=== PATIENT | male | born 1930 | race Caucasian/White ===

== ENCOUNTER 2020-03-03 03:02 | Inpatient (IN) ==
[2020-03-03] MEDS ORDERED: DEXAMETHASONE SODIUM PHOSP/PF 10 MG/ML VIAL IV ONE (03:15)
--- NOTE | 2020-03-03 03:18 | ERNOTE ---
Dyspnea - General Presenting Symptoms: shortness of breath Time Seen by Provider: 03/03/20 03:12 Source: patient, RN notes reviewed Exam Limitations: clinical condition - Immun/Allergies/Home Medications Allergies/Adverse Reactions: Allergies No Known Allergies Allergy (Verified 05/12/19 16:46) FROM AMB SHEET Home Medications: HOME MEDICATIONS Atorvastatin Calcium [Lipitor] 80 mg PO HS 11/19/12 [Last Taken Unknown] Isosorbide Mononitrate [Imdur] 60 mg PO DAILY 11/19/12 [Last Taken Unknown] Metoprolol Tartrate [Lopressor] 50 mg PO BID 11/19/12 [Last Taken Unknown] Paroxetine HCl [Paxil] 60 mg PO DAILY 11/19/12 [Last Taken Unknown] Doxazosin Mesylate [Cardura] 1 mg PO DAILY 01/25/14 [Last Taken Unknown] Furosemide [Lasix] 40 mg PO QAM 01/25/14 [Last Taken Unknown] Omeprazole [Prilosec] 20 mg PO BID 01/25/14 [Last Taken Unknown] ALPRAZolam [Xanax] 0.5 mg PO PRN 03/03/20 [Last Taken Unknown] ALPRAZolam [Xanax] 0.5 mg PO QPM 03/03/20 [Last Taken Unknown] Albuterol Sulfate [Ventolin HFA] 1 puff INHALATION PRN 03/03/20 [Last Taken Unknown] Aspirin [Aspirin Chewable] 81 mg PO DAILY 03/03/20 [Last Taken Unknown] FLUoxetine HCL [Fluoxetine HCl] 20 mg PO QAM 03/03/20 [Last Taken Unknown] Fluticasone Propion/Salmeterol [Fluticasone-Salmeterol 500-50] 1 puff INH BID 03/03/20 [Last Taken Unknown] Mirtazapine 15 mg PO QPM 03/03/20 [Last Taken Unknown] Nitroglycerin [Nitrostat] 0.4 mg SUBLINGUAL Q5MIN PRN 03/03/20 [Last Taken Unknown] Phenytoin Sodium Extended [Dilantin] 30 mg PO QPM 03/03/20 [Last Taken Unknown] Phenytoin [Dilantin Chewable Tablet] 100 mg PO QPM 03/03/20 [Last Taken Unknown] Potassium Chloride 10 meq PO DAILY 03/03/20 [Last Taken Unknown] - History of Present Illness Narrative: Patient is an 89-year-old white male with past medical history significant for COPD was in his usual state of health when he went to bed last night when he awoke early this morning with nausea and vomiting. He denies any chest discomfort other than it is difficult to breathe and states his breathing is definitely much worse than typical. He does not wear oxygen at home. Here in the ER he was noted to be 86% on room air with a respiratory rate in the 40s. He still complains of nausea but no vomiting while here. He denies any urinary symptoms, fevers or chills or ill contacts. Is brought to the ER via POV. He did try breathing treatment at home which he states had minimal benefit. Severity: moderate Treatment FIELD REVIEWER: albuterol Initiating event: Reports: unknown Frequency of episodes: Reports: occassional episodes Modifying Factors - (Improves): Reports: rest Modifying Factors (Worsens): Reports: activity, coughing, lying down Associated Symptoms-Dyspnea: Reports: cough, weakness. Denies: fever/chills, sweating, chest pain/discomfort, palpitations, wheezing, leg/calf pain, ankle/leg swelling, dizziness, lightheadedness, anxiety, tingling of hands/face, muscle spasms, loss of appetite Review of Systems - Review of Systems Constitutional: Absent: fever, chills EYE: Present: no symptoms reported ENT: Present: no symptoms reported Respiratory: Present: shortness of breath. Absent: cough, orthopnea, wheezing, stridor Cardiology: Absent: chest pain, palpitations, syncope, edema, claudication Gastrointestinal/Abdominal: Present: nausea, vomiting. Absent: diarrhea, constipation, abdominal pain Genitourinary: Present: no symptoms reported Musculoskeletal: Present: no symptoms reported Skin: Present: no symptoms reported Neurological: Present: dizziness/light-headedness, weakness Endocrine: Absent: excessive sweating, flushing, intolerance to heat, intolerance to cold Hematologic/Lymphatic: Absent: easy bruising, easy bleeding Psych: Absent: anxiety, depressed Medical History (Last Reviewed 03/03/20 @ 03:27 by Shalom Piedra MD) COPD (chronic obstructive pulmonary disease) History of angina History of hyperlipidemia Hypertension Skin cancer of face Surgical History: Surgical History (Last Reviewed 03/03/20 @ 03:27 by Shalom Piedra MD) H/O prostatectomy Onset Date: ~02/2019 Partial removal of prostate History of hernia surgery History of tonsillectomy and adenoidectomy Status post surgical removal of malignant neoplasm of skin Family History: Family History (Last Reviewed 03/03/20 @ 03:27 by Shalom Piedra MD) Father Cancer Mother Tuberculosis Brother No problems noted. Social History: (Last Reviewed 03/03/20 @ 03:27 by Shalom Piedra MD) Tobacco: Smoking Status: Former smoker Alcohol: alcohol intake: never Substance Use: substance use type: does not use Dietary Habits: caffeine: Yes Physical Exam - Physical Exam General Appearance: Present: wd/wn, alert, severe distress, anxious, thin Head Exam: Present: normal inspection, no evidence of injury Eye Exam: Normal inspection: bilateral, PERRL: bilateral, EOMI: bilateral Neck: Present: normal inspection, supple Respiratory: Present: respiratory distress, accessory muscle use - Poor air exchange bilaterally, expiration (prolonged), rales - Right base, other Cardiovascular/Chest: Present: regular rate, rhythm, no murmur, normal peripheral pulses Gastrointestinal/Abdominal: Present: normal bowel sounds, nontender, nondistended Extremity Exam: Present: normal inspection, non-tender, normal range of motion, no edema Neurological Exam: Present: alert, oriented, no motor/sensory deficits, other - Anxious Skin Exam: Present: normal color, warm/dry Progress - Results and Orders Patient's Lab Results:: I have reviewed the patient's lab results. Results and Orders: Laboratory Tests 03/03/20 03:20 WBC 12.2 H RBC 5.01 Hgb 14.4 Hct 44.8 MCV 89.4 MCH 28.7 MCHC 32.1 RDW 14.0 Plt Count 317 MPV 9.4 Immature Gran % (Auto) 0.30 Immature Gran # (Auto) 0.04 H Neutrophils % 90.3 H Lymphocytes % 6.9 L Monocytes % 1.3 Eosinophils % 0.9 Basophils % 0.3 Nucleated RBC % 0.0 Neutrophils # 11.0 H Lymphocytes # 0.84 L Monocytes # 0.2 Eosinophils # 0.1 Absolute Basophils 0.0 Laboratory Tests 03/03/20 03:26 pCO2 38.2 pO2 48.1 L HCO3 22.1 Total CO2 23.3 Base Excess -2.5 L ABG pH 7.38 ABG O2 Sat (Measured) 83.4 L Laboratory Tests 03/03/20 03/03/20 03/03/20 03:20 03:20 03:25 Sodium 138 Plasma Sodium 139 Potassium 4.2 Chloride 104 Carbon Dioxide 31.0 Anion Gap 7.2 BUN 14 Creatinine 1.09 Est GFR (Non-Af Amer) 68 BUN/Creatinine Ratio 12.8 Random Glucose 160 H Lactic Acid, Venous 2.9 H* Calcium 9.3 Calcium Adj for Albumin 9.6 Total Bilirubin 0.3 AST 41 ALT 35 Alkaline Phosphatase 148 Troponin I Less than 0.017 B-Natriuretic Peptide 370 Total Protein 7.8 Albumin 3.2 L Laboratory Tests 03/03/20 03:30 SARS-CoV-2 (PCR) Not detected - Vital Signs Patient's Vital Signs:: I have reviewed the patient's vital signs. - EKG EKG #1 EKG: NSR, nonspecific ST T wave changes EKG read: Interp. by me EKG Comments: Artifact due to patient movement secondary to respiratory distress, but no acute ST depressions or elevations that are concerning for a STEMI or non-STEMI. - X-Ray X-Ray #1 X-Ray: chest Interpretation: Interp. by me X-ray Comments: Patient with notable right middle lobe and right lower lobe infiltrate. - Progress/Reassessment Chief Complaint: Dyspnea Progress:: Improved Progress Note-Subjective: 03/03/20 05:21 Patient has improved since his arrival. He is now been weaned off his O2 but still gets extremely dyspneic with any activity, with respiratory rate going up into the 30s with even the slightest activity. Blood pressures are now trending down into the 90s so we will give him a bolus of LR, 500 mL's. This is most likely attributed to the additional metoprolol that he received prior to coming to the ER. Patient does voice feeling much better and he does have improved air exchange from when he first arrived. Still given his right lower lobe pneumonia, continued dyspnea on exertion and COPD exacerbation concerns will admit for IV antibiotics, IV steroids, scheduled DuoNeb and work on pulmonary toilet in order to get back home as soon as possible. I do anticipate he will be here for minimum of 2 midnights though. Patient discussed with Dr. Campos who is agreeable to admit patient for [facility]. Appreciate his help. - Transfer of Care Expected Disposition: Admit Plan - Plan Plan: Chest x-ray, physical exam and elevated white count all concerning for right- sided pneumonia. COVID still pending at this time. We will do blood cultures start him on IV Rocephin, a dose of p.o. azithromycin and dexamethasone. Patient does have a lactic acidosis this is more from his hypoxemia not necessarily because he is septic, given his normal pressures and heart rate. We will not do IV fluids at this time but will repeat a lactic acid to verify improvement. Given drop in his blood pressures will now do LR bolus. Believe his drop in blood pressure is more due to the extra dose of metoprolol he got prior to ER arrival and not due to a septic state. Patient is COVID was negative. Departure Clinical Impression: COPD with exacerbation, Acute respiratory failure with hypoxia RLL pneumonia Qualifiers: Pneumonia type: due to unspecified organism Qualified Code(s): J18.9 - Pneumonia, unspecified organism - Departure Disposition: Still a patient Condition: Fair Referrals: Shalom Rice MD [Primary Care Provider] -
[2020-03-03] MEDS ORDERED: ONDANSETRON HCL/PF 2 MG/ML VIAL IV ONE (03:23)
[2020-03-03 03:26] LABS: Hematocrit 44.8 % (42.0-52.0); Hemoglobin 14.4 gm/dL (13.5-18.0); Mean Cell Volume 89.4 fl (78-100); Mean Corpuscular Hemoglobin 28.7 pg (27-31); Mean Corpuscular Hgb Conc 32.1 g/dl (32-36); Mean Platelet Volume 9.4 fl (8-11.3); Neutrophil % 90.3 % (42-75.0); Platelet Count 317 K/mm3 (150-450); Red Blood Count 5.01 M/mm3 (4.7-6.0); White Blood Count 12.2 K/mm3 (4.0-10.5)
[2020-03-03] MEDS ORDERED: AZITHROMYCIN 250 MG TABLET PO STA (03:27)
[2020-03-03] MEDS ORDERED: cefTRIAXone SODIUM 1,000 MG/100 ML BAG IV ONE (03:30)
[2020-03-03 03:49] LABS: Troponin I Less than 0.017 ng/mL (0.00-0.10)
[2020-03-03 03:52] LABS: ALT 35 U/L (19-67); AST 41 U/L (0-48); Albumin * 3.2 gm/dl (3.4-5.0); Alkaline Phosphatase * 148 U/L (50-170); Anion Gap 7.2 mmol/L (6.8-13.8); BUN/Creatinine Ratio 12.8 (9.0-21.6); Bilirubin, Total 0.3 mg/dL (0.0-1.1); Blood Urea Nitrogen 14 mg/dL (6-23); Ca. Corrected For Albumin 9.6 mg/dL (8.4-10.2); Calcium * 9.3 mg/dL (7.9-10.9); Chloride 104 mmol/L (97-106); Glucose * 160 mg/dL (70-110); Potassium 4.2 mmol/L (3.4-4.6); Sodium 138 mmol/L (132-142); Total Protein 7.8 gm/dL (6.2-8.2)
[2020-03-03 04:30] LABS: Urine Bilirubin Negative (NEGATIVE); Urine Blood Negative /ul (NEGATIVE); Urine Ketone Negative (NEGATIVE); Urine Nitrite Negative (NEGATIVE); Urine Protein Negative (NEGATIVE); Urine Specific Gravity 1.015 SP.GR. (1.005-1.030); Urine Urobilinogen Normal (NORMAL)
[2020-03-03] MEDS ORDERED: ALBUTEROL SULFATE/IPRATROPIUM 3 ML NEBU IH ONE (04:31)
[2020-03-03 04:46] LABS: Urine Appearance Clear (CLEAR); Urine Bacteria None Seen; Urine Color Yellow; Urine RBC None Seen /hpf (0-5); Urine WBC None Seen /hpf (0-5)
[2020-03-03] MEDS ORDERED: RINGER'S SOLUTION,LACTATED 500 ML IV ONE (05:19)
[2020-03-03] MEDS ORDERED: ACETAMINOPHEN 325 MG TABLET PO PRN (05:26)
[2020-03-03] MEDS ORDERED: ALBUTEROL SULFATE/IPRATROPIUM 3 ML NEBU IH SCH (05:30)
[2020-03-03] MEDS: HEPARIN SODIUM,PORCINE 5,000 UNITS/ML VIAL SC SCH ×2 (06:14→16:42)
--- NOTE | 2020-03-03 07:59 | HP ---
Chief Complaint - Chief Complaint Date of Service: 03/03/20 Time of Service: 07:57 History of Present Illness: Matthias Hall is an 89-year-old white male patient of Dr. Rice with past medical history of COPD, hypertension, seizure disorder, hyperlipidemia, history of angina, who was admitted on 03/03/2024 because of shortness of breath associated with nausea. The patient says that when he woke-up this morning he was starting to have some shortness of breath associated with wheezing. He used his inhalers and nebulizers 3 times with no success and so he went to the emergency room. He denied any chest pain, fever or chills, coughing with productive phlegm but admits to orthopnea. He does not wear oxygen at home. When he got to the emergency room he was saturating around 86% on room air and tachypneic with respiratory rate in the 40s. His EKG showed normal sinus rhythm with nonspecific ST-T wave changes. His white blood cell count was elevated and his chest x-ray showed right middle and lower lobe consolidation. His ABG showed 7.38/38.2/48.1/22/83.4 %. He was then admitted for pneumonia with acute COPD exacerbation leading to acute hypoxemic respiratory failure. His oxygen saturation improved to the upper 90s with 2 L of nasal cannula. Medical History (Last Reviewed 03/03/20 @ 06:22 by Desean Jeffers RN) COPD (chronic obstructive pulmonary disease) History of angina History of hyperlipidemia Hypertension Skin cancer of face Surgical History: Surgical History (Last Reviewed 03/03/20 @ 06:22 by Desean Jeffers RN) H/O prostatectomy Onset Date: ~02/2019 Partial removal of prostate History of hernia surgery History of tonsillectomy and adenoidectomy Status post surgical removal of malignant neoplasm of skin Family History: Family History (Last Reviewed 03/03/20 @ 06:22 by Desean Jeffers RN) Father Cancer Mother Tuberculosis Brother No problems noted. Social History: (Last Reviewed 03/03/20 @ 06:22 by Desean Jeffers RN) Tobacco: Smoking Status: Former smoker Alcohol: alcohol intake: never Substance Use: substance use type: does not use Dietary Habits: caffeine: Yes Review Of Systems (GEN) - Review of Systems Generalized/Overall Review: Absent: Weakness, Chills, Fever EENTM: Absent: Blurred Vision, Other - Denies sore throat Respiratory: Present: Shortness of Breath, Wheezing. Absent: Cough, Orthopnea, Stridor Cardiac: Absent: Chest Pain, Edema, Palpitations Abdominal: Present: Nausea. Absent: Vomiting, Abdominal Pain Genitourinary: Absent: Urgency, Frequency Musculoskeletal: Absent: Joint Pain, Back Pain Neurological: Absent: Headache Skin: Absent: Lesions, Rash Endocrine: Absent: Intolerance to Cold, Intolerance to Heat Misc: All systems neg except as marked Immunizations: IMMUNIZATION HX Immunizations Up to Date Yes History of Influenza Vaccine Yes Hx Pneumococcal Vaccination Yes Allergies/Adverse Reactions: Allergies Allergy/AdvReac Type Severity Reaction Status Date / Time No Known Allergies Allergy Verified 03/03/20 06:22 Home Medications: HOME MEDICATIONS Atorvastatin Calcium [Lipitor] 80 mg PO HS 11/19/12 [Last Taken Unknown] Isosorbide Mononitrate [Imdur] 90 mg PO DAILY 11/19/12 [Last Taken Unknown] Metoprolol Tartrate [Lopressor] 50 mg PO BID 11/19/12 [Last Taken Unknown] Paroxetine HCl [Paxil] 30 mg PO DAILY 11/19/12 [Last Taken Unknown] Doxazosin Mesylate [Cardura] 1 mg PO DAILY 01/25/14 [Last Taken Unknown] Furosemide [Lasix] 40 mg PO QAM 01/25/14 [Last Taken Unknown] Omeprazole [Prilosec] 40 mg PO BID 01/25/14 [Last Taken Unknown] ALPRAZolam [Xanax] 0.5 mg PO PRN 03/03/20 [Last Taken Unknown] ALPRAZolam [Xanax] 0.5 mg PO QPM 03/03/20 [Last Taken Unknown] Albuterol Sulfate [Ventolin HFA] 1 puff INHALATION PRN 03/03/20 [Last Taken Unknown] Aspirin [Aspirin Chewable] 81 mg PO DAILY 03/03/20 [Last Taken Unknown] FLUoxetine HCL [Fluoxetine HCl] 20 mg PO QAM 03/03/20 [Last Taken Unknown] Fluticasone Propion/Salmeterol [Fluticasone-Salmeterol 500-50] 1 puff INH BID 03/03/20 [Last Taken Unknown] Mirtazapine 15 mg PO QPM 03/03/20 [Last Taken Unknown] Nitroglycerin [Nitrostat] 0.4 mg SUBLINGUAL Q5MIN PRN 03/03/20 [Last Taken Unknown] Phenytoin Sodium Extended [Dilantin] 30 mg PO QPM 03/03/20 [Last Taken Unknown] Phenytoin [Dilantin Chewable Tablet] 100 mg PO QPM 03/03/20 [Last Taken Unknown] Potassium Chloride 10 meq PO DAILY 03/03/20 [Last Taken Unknown] Exam - Exam Vital Signs: Vital Signs - Last Taken Temp 37.2 C 03/03/20 06:40 Pulse 89 03/03/20 06:40 Resp 28 H 03/03/20 06:40 BP 124/60 03/03/20 06:40 Pulse Ox 96 03/03/20 06:40 Constitutional: Present: Alert, Oriented x3, Cooperative, Elderly ENT Exam: Present: hearing grossly normal Eye Exam: bilateral eye: normal inspection, PERRL, EOMI Neck: Present: supple. Absent: lymphadenopathy (R), lymphadenopathy (L) Respiratory: Present: decreased breath sounds, wheezing - Occasional, No rales Cardiovascular/Chest: Present: normal peripheral pulses, regular rate, rhythm, no JVD Abdomen: Present: soft, nontender, firm, hypoactive Extremity: Present: no pedal edema, no calf tenderness. Absent: lower extremity edema Diagnostic Studies: Abnormal Lab Results 03/03/20 03/03/20 03/03/20 Range/Units 03:20 03:20 03:20 WBC 12.2 H (4.0-10.5) K/mm3 Immature Gran # (Auto) 0.04 H (0.000-0.0310) K/mm3 Neutrophils % 90.3 H (42-75.0) % Lymphocytes % 6.9 L (20-51) % Neutrophils # 11.0 H (1.3-6.0) K/mm3 Lymphocytes # 0.84 L (1.5-3.5) k/mm3 pO2 (83.0-108.0) mmHg Base Excess (-2.0-3.0) mmol/L ABG O2 Sat (Measured) (94.0-98.0) % Random Glucose 160 H (70-110) mg/dL Lactic Acid, Venous 2.9 H* (0.4-2.0) mmol/L Albumin 3.2 L (3.4-5.0) gm/dl 03/03/20 Range/Units 03:26 WBC (4.0-10.5) K/mm3 Immature Gran # (Auto) (0.000-0.0310) K/mm3 Neutrophils % (42-75.0) % Lymphocytes % (20-51) % Neutrophils # (1.3-6.0) K/mm3 Lymphocytes # (1.5-3.5) k/mm3 pO2 48.1 L (83.0-108.0) mmHg Base Excess -2.5 L (-2.0-3.0) mmol/L ABG O2 Sat (Measured) 83.4 L (94.0-98.0) % Random Glucose (70-110) mg/dL Lactic Acid, Venous (0.4-2.0) mmol/L Albumin (3.4-5.0) gm/dl Laboratory Results WBC 12.2 K/mm3 (4.0-10.5) H 03/03/20 03:20 RBC 5.01 M/mm3 (4.7-6.0) 03/03/20 03:20 Hgb 14.4 gm/dL (13.5-18.0) 03/03/20 03:20 Hct 44.8 % (42.0-52.0) 03/03/20 03:20 MCV 89.4 fl (78-100) 03/03/20 03:20 MCH 28.7 pg (27-31) 03/03/20 03:20 MCHC 32.1 g/dl (32-36) 03/03/20 03:20 RDW 14.0 % (11.5-14.0) 03/03/20 03:20 Plt Count 317 K/mm3 (150-450) 03/03/20 03:20 MPV 9.4 fl (8-11.3) 03/03/20 03:20 Immature Gran % (Auto) 0.30 % (0.001-0.429) 03/03/20 03:20 Immature Gran # (Auto) 0.04 K/mm3 (0.000-0.0310) H 03/03/20 03:20 Neutrophils % 90.3 % (42-75.0) H 03/03/20 03:20 Lymphocytes % 6.9 % (20-51) L 03/03/20 03:20 Monocytes % 1.3 % (0.0-9) 03/03/20 03:20 Eosinophils % 0.9 % (0.0-3.0) 03/03/20 03:20 Basophils % 0.3 % (0.0-1.0) 03/03/20 03:20 Nucleated RBC % 0.0 k/mm3 (0-1) 03/03/20 03:20 Neutrophils # 11.0 K/mm3 (1.3-6.0) H 03/03/20 03:20 Lymphocytes # 0.84 k/mm3 (1.5-3.5) L 03/03/20 03:20 Monocytes # 0.2 k/mm3 (0.0-1.0) 03/03/20 03:20 Eosinophils # 0.1 k/mm3 (0.0-0.7) 03/03/20 03:20 Absolute Basophils 0.0 k/mm3 (0.0-0.1) 03/03/20 03:20 pCO2 38.2 mmHg (35.0-48.0) 03/03/20 03:26 pO2 48.1 mmHg (83.0-108.0) L 03/03/20 03:26 HCO3 22.1 mmol/L (21.0-28.0) 03/03/20 03:26 Total CO2 23.3 mmol/L (19.0-24.0) 03/03/20 03:26 Base Excess -2.5 mmol/L (-2.0-3.0) L 03/03/20 03:26 ABG pH 7.38 (7.35-7.45) 03/03/20 03:26 ABG O2 Sat (Measured) 83.4 % (94.0-98.0) L 03/03/20 03:26 Sodium 138 mmol/L (132-142) 03/03/20 03:20 Plasma Sodium 139 mmol/L (130-142) 03/03/20 03:20 Potassium 4.2 mmol/L (3.4-4.6) 03/03/20 03:20 Chloride 104 mmol/L (97-106) 03/03/20 03:20 Carbon Dioxide 31.0 mmol/L (24-32.6) 08/07/20 03:20 Anion Gap 7.2 mmol/L (6.8-13.8) 03/03/20 03:20 BUN 14 mg/dL (6-23) 03/03/20 03:20 Creatinine 1.09 mg/dL (0.4-1.4) 03/03/20 03:20 Est GFR (Non-Af Amer) 68 mL/min (60-130) 03/03/20 03:20 BUN/Creatinine Ratio 12.8 (9.0-21.6) 03/03/20 03:20 Random Glucose 160 mg/dL (70-110) H 03/03/20 03:20 Lactic Acid, Venous 1.5 mmol/L (0.4-2.0) 03/03/20 06:27 Calcium 9.3 mg/dL (7.9-10.9) 03/03/20 03:20 Calcium Adj for Albumin 9.6 mg/dL (8.4-10.2) 03/03/20 03:20 Total Bilirubin 0.3 mg/dL (0.0-1.1) 03/03/20 03:20 AST 41 U/L (0-48) 03/03/20 03:20 ALT 35 U/L (19-67) 03/03/20 03:20 Alkaline Phosphatase 148 U/L (50-170) 03/03/20 03:20 Troponin I Less than 0.017 ng/mL (0.00-0.10) 03/03/20 03:20 B-Natriuretic Peptide 370 pg/mL (5-650) 03/03/20 03:25 Total Protein 7.8 gm/dL (6.2-8.2) 03/03/20 03:20 Albumin 3.2 gm/dl (3.4-5.0) L 03/03/20 03:20 Urine Color Yellow 03/03/20 04:22 Urine Appearance Clear (CLEAR) 03/03/20 04:22 Urine pH 7.0 pH (5.0-7.0) 03/03/20 04:22 Ur Specific [place] 1.015 SP.GR. (1.005-1.030) 03/03/20 04:22 Urine Protein Negative mg/dL (NEGATIVE) 03/03/20 04:22 Urine Glucose (UA) Negative mg/dL (NEGATIVE) 03/03/20 04:22 Urine Ketones Negative mg/dL (NEGATIVE) 03/03/20 04:22 Urine Blood Negative /ul (NEGATIVE) 03/03/20 04:22 Urine Nitrate Negative (NEGATIVE) 03/03/20 04:22 Urine Bilirubin Negative mg/dl (NEGATIVE) 03/03/20 04:22 Urine Urobilinogen Normal EU/dl (NORMAL) 03/03/20 04:22 Ur Leukocyte Esterase Negative /ul (NEGATIVE) 03/03/20 04:22 Urine RBC None seen /hpf (0-5) 03/03/20 04:22 Urine WBC None seen /hpf (0-5) 03/03/20 04:22 Ur Epithelial Cells None seen /hpf (0-5) 03/03/20 04:22 Urine Bacteria None seen (NONE) 03/03/20 04:22 Urine Culture Comments No culture indicated 03/03/20 04:22 SARS-CoV-2 (PCR) Not detected (ND) 03/03/20 03:30 Assessment/Plan - Narrative Narrative: Matthias Albright he is an 89-year-old white male who was admitted for acute hypoxic respiratory failure from multilobar pneumonia with acute COPD exacerbation. We will continue him on IV antibiotics, IV Solu-Medrol, and breathing treatments. His lactic acidosis resolved. We will continue patient's other home medications. - Assessment/Plan (1) Acute respiratory failure with hypoxia Problem: Acute (2) Pneumonia Assessment: Multilobar involving right midlung field and right lung base. Problem: Acute Qualifiers: Pneumonia type: due to unspecified organism Laterality: right Lung location: middle lobe of lung Qualified Code(s): J18.9 - Pneumonia, unspecified organism (3) Lactic acidosis Problem: Resolved (4) COPD with exacerbation Problem: Acute (5) Hypertension Problem: Acute (6) Hyperlipidemia Problem: Chronic
[2020-03-03] MEDS ORDERED: NITROGLYCERIN 0.4 MG/TAB BTL SL PRN (08:32)
[2020-03-03] MEDS ORDERED: ALBUTEROL SULFATE 2.5 MG/0.5 ML VIAL.NEB IH PRN (08:41)
[2020-03-03] MEDS ORDERED: ALPRAZolam 0.5 MG TABLET PO PRN (08:45)
[2020-03-03] MEDS ORDERED: AZITHROMYCIN 250 MG TABLET PO SCH (09:00)
[2020-03-03] MEDS ORDERED: ENOXAPARIN SODIUM 40 MG/0.4 ML SYRG SC SCH (09:00)
[2020-03-03] MEDS: METHYLPREDNISOLONE SOD SUCC/PF 40 MG/ML VIAL IV SCH ×3 (09:20→20:44)
[2020-03-03] MEDS: ASPIRIN 81 MG TAB.CHEW PO SCH (09:20)
[2020-03-03] MEDS: ISOSORBIDE MONONITRATE 30 MG TAB.SR.24H PO SCH (09:21)
[2020-03-03] MEDS: DOXAZOSIN MESYLATE 2 MG TABLET PO SCH (09:21)
[2020-03-03] MEDS: POTASSIUM CHLORIDE 10 MEQ TABLET.SA PO SCH (09:21)
[2020-03-03] MEDS: ALBUTEROL SULFATE/IPRATROPIUM 3 ML NEBU IH SCH ×5 (09:26→23:27)
[2020-03-03] MEDS: PANTOPRAZOLE SODIUM 40 MG TABLET.EC PO SCH ×2 (09:34→20:45)
[2020-03-03] MEDS: PARoxetine HCL 10 MG TABLET PO SCH (09:34)
[2020-03-03] MEDS: AZITHROMYCIN 250 MG TABLET PO SCH (09:34)
[2020-03-03] MEDS: METOPROLOL TARTRATE 50 MG TABLET PO SCH ×2 (09:34→16:12)
[2020-03-03] MEDS: FUROSEMIDE 40 MG TABLET PO SCH (09:34)
[2020-03-03] MEDS: PHENYTOIN 50 MG TAB.CHEW PO SCH (16:11)
[2020-03-03] MEDS: ALPRAZolam 0.5 MG TABLET PO SCH (16:11)
[2020-03-03] MEDS: PHENYTOIN SODIUM 30 MG PO SCH (16:11)
[2020-03-03] MEDS: ROSUVASTATIN CALCIUM 20 MG TABLET PO SCH (20:45)
[2020-03-04] MEDS: METHYLPREDNISOLONE SOD SUCC/PF 40 MG/ML VIAL IV SCH ×3 (02:11→20:30)
[2020-03-04] MEDS: ALBUTEROL SULFATE/IPRATROPIUM 3 ML NEBU IH SCH ×6 (03:15→22:41)
[2020-03-04] MEDS: HEPARIN SODIUM,PORCINE 5,000 UNITS/ML VIAL SC SCH ×2 (04:47→16:55)
[2020-03-04 06:33] LABS: Hematocrit 34.7 % (42.0-52.0); Hemoglobin 11.3 gm/dL (13.5-18.0); Mean Corpuscular Hgb Conc 32.6 g/dl (32-36); Mean Platelet Volume 9.5 fl (8-11.3); Neutrophil # 15.1 K/mm3 (1.3-6.0); Neutrophil % 91.8 % (42-75.0); Platelet Count 230 K/mm3 (150-450); Red Cell Distribution Width 14.5 % (11.5-14.0); White Blood Count 16.5 K/mm3 (4.0-10.5)
[2020-03-04 06:43] LABS: Anion Gap 11.6 mmol/L (6.8-13.8); BUN/Creatinine Ratio 15.7 (9.0-21.6); Calcium * 9.2 mg/dL (7.9-10.9); Carbon Dioxide 26.8 mmol/L (24-32.6); Estimated Creat Clear 26.9; Potassium 4.4 mmol/L (3.4-4.6)
[2020-03-04] MEDS: PANTOPRAZOLE SODIUM 40 MG TABLET.EC PO SCH ×2 (08:21→20:30)
[2020-03-04] MEDS: POTASSIUM CHLORIDE 10 MEQ TABLET.SA PO SCH (08:21)
[2020-03-04] MEDS: ISOSORBIDE MONONITRATE 30 MG TAB.SR.24H PO SCH (08:21)
[2020-03-04] MEDS: METOPROLOL TARTRATE 50 MG TABLET PO SCH ×2 (08:21→16:55)
[2020-03-04] MEDS: FUROSEMIDE 40 MG TABLET PO SCH (08:21)
[2020-03-04] MEDS: DOXAZOSIN MESYLATE 2 MG TABLET PO SCH (08:22)
[2020-03-04] MEDS: AZITHROMYCIN 250 MG TABLET PO SCH (08:22)
[2020-03-04] MEDS: PARoxetine HCL 10 MG TABLET PO SCH (08:22)
[2020-03-04] MEDS: ASPIRIN 81 MG TAB.CHEW PO SCH (08:23)
--- NOTE | 2020-03-04 10:36 | PN ---
Subjective - Date and Time Seen Date: 03/04/20 Time: 08:40 Subjective Narrative: On service note: Matthias Hall is an 89-year-old male patient of Dr. Campos. He was admitted through the emergency room with multilobular pneumonia. He was started on Rocephin and azithromycin. He has been receiving breathing treatments and IV steroids. His blood sugar yesterday was 160 and today is 169 most likely reflecting steroid influence. Other lab this morning s hows a white count increased to 16,500 with 92% neutrophils and an increased number of bands. Hemoglobin is 11.3 g and hematocrit 34.7%. Electrolytes are normal. The BUN is 25, creatinine 1.59, EGFR of 44. I have reviewed the chest x-ray reflecting the right mid lung and lower lobe pneumonias. He states he thinks he is breathing easier and feeling some better. He has a cough but it is mostly nonproductive. Sputum Gram stain and DATA MANAGEMENT SPECIALIST are ordered. Objective - Review of Systems Generalized/Overall Review: Reports: Weakness, Malaise, Fatigue. Denies: Chills, Fever EENTM: Reports: No Symptoms Reported Respiratory: Reports: Cough, Shortness of Breath Cardiac: Reports: No Symptoms Reported Abdominal: Reports: No Symptoms Reported Genitourinary Symptoms: Reports: No Symptoms Reported Musculoskeletal Complaints: Reports: No Symptoms Reported Neurological: Reports: No Symptoms Reported Skin: Reports: No Symptoms Reported Endocrine: Reports: No Symptoms Reported Misc: All systems neg except as marked - Vitals Vitals: Last Vital Signs Temp 37.5 C 03/04/20 06:28 Pulse 76 03/04/20 10:11 Resp 18 03/04/20 10:11 BP 133/67 03/04/20 08:21 Pulse Ox 95 03/04/20 10:11 - Abnormal Lab Findings Abnormal Lab Findings: Abnormal Lab Results 03/04/20 03/04/20 Range/Units 06:30 06:30 WBC 16.5 H D (4.0-10.5) K/mm3 RBC 3.90 L (4.7-6.0) M/mm3 Hgb 11.3 L (13.5-18.0) gm/dL Hct 34.7 L (42.0-52.0) % RDW 14.5 H (11.5-14.0) % Immature Gran % (Auto) 0.90 H (0.001-0.429) % Immature Gran # (Auto) 0.15 H (0.000-0.0310) K/mm3 Neutrophils % 91.8 H (42-75.0) % Lymphocytes % 4.6 L (20-51) % Neutrophils # 15.1 H (1.3-6.0) K/mm3 Lymphocytes # 0.75 L (1.5-3.5) k/mm3 BUN 25 H D (6-23) mg/dL Creatinine 1.59 H D (0.4-1.4) mg/dL Est GFR (Non-Af Amer) 44 L D (60-130) mL/min Random Glucose 169 H (70-110) mg/dL - EKG/Xray Findings XRAY: chest Interpretation: Reviewed by me - Exam Constitutional: Present: Alert, Oriented x3, Cooperative, Well developed, Well nourished, No distress ENT Exam: Present: normal ENT inspection, hearing grossly normal, pharynx normal, TMs normal Neck: Present: non-tender, limited range of motion Breasts: Present: Exam deferred Respiratory: Present: chest non-tender, decreased breath sounds - Right chest, rhonchi - Right chest, wheezing - Right chest, expiration (prolonged) Cardiovascular/Chest: Present: normal peripheral pulses, regular rate, rhythm, no chest tenderness, no edema, no gallop, no JVD, no murmur, no rub Abdomen: Present: Normal bowel sounds, soft, nontender, nondistended, no rebound tenderness, no hepatospenomegaly, no masses /Rectal: Present: Exam deferred Extremity: Present: normal range of motion, non-tender, normal inspection, no pedal edema, no calf tenderness, normal capillary refill Skin Exam: Present: normal color, warm/dry, no cyanosis Lymphatic: Present: no adenopathy Neurologic: Present: 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 Pneumoniacontinue current antibiotics, respiratory therapy, and decrease steroids. 2. Mild cardiomegaly no treatment required 3. Major depressive disorderrestart fluoxetine and mirtazapine 4. Hyperglycemia and leukocytosis both steroid-inducedreevaluate with tomorrow morning's lab 5. 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
[2020-03-04] MEDS: ALPRAZolam 0.5 MG TABLET PO SCH (16:55)
[2020-03-04] MEDS: PHENYTOIN SODIUM 30 MG PO SCH (16:55)
[2020-03-04] MEDS: PHENYTOIN 50 MG TAB.CHEW PO SCH (16:56)
[2020-03-04] MEDS: MIRTAZAPINE 15 MG TABLET PO SCH (16:56)
[2020-03-04] MEDS: ROSUVASTATIN CALCIUM 20 MG TABLET PO SCH (20:29)
[2020-03-05] MEDS: ALBUTEROL SULFATE/IPRATROPIUM 3 ML NEBU IH SCH ×6 (03:37→22:23)
[2020-03-05] MEDS: HEPARIN SODIUM,PORCINE 5,000 UNITS/ML VIAL SC SCH ×2 (05:14→17:04)
[2020-03-05 06:31] LABS: Hematocrit 35.7 % (42.0-52.0); Hemoglobin 11.5 gm/dL (13.5-18.0); Mean Cell Volume 89.5 fl (78-100); Mean Corpuscular Hemoglobin 28.8 pg (27-31); Mean Corpuscular Hgb Conc 32.2 g/dl (32-36); Mean Platelet Volume 10.3 fl (8-11.3); Neutrophil # 8.3 K/mm3 (1.3-6.0); Neutrophil % 82.4 % (42-75.0); Platelet Count 253 K/mm3 (150-450); Red Blood Count 3.99 M/mm3 (4.7-6.0); Red Cell Distribution Width 14.6 % (11.5-14.0); White Blood Count 10.1 K/mm3 (4.0-10.5)
[2020-03-05 06:49] LABS: Albumin * 2.6 gm/dl (3.4-5.0); Anion Gap 10.3 mmol/L (6.8-13.8); Bilirubin, Total 0.2 mg/dL (0.0-1.1); Ca. Corrected For Albumin 10.1 mg/dL (8.4-10.2); Calcium * 9.3 mg/dL (7.9-10.9); Carbon Dioxide 28.8 mmol/L (24-32.6); Potassium 4.1 mmol/L (3.4-4.6)
[2020-03-05] MEDS: ASPIRIN 81 MG TAB.CHEW PO SCH (09:18)
[2020-03-05] MEDS: DOXAZOSIN MESYLATE 2 MG TABLET PO SCH (09:19)
[2020-03-05] MEDS: METOPROLOL TARTRATE 50 MG TABLET PO SCH ×2 (09:20→17:04)
[2020-03-05] MEDS: ISOSORBIDE MONONITRATE 30 MG TAB.SR.24H PO SCH (09:20)
[2020-03-05] MEDS: FLUoxetine HCL 20 MG CAPSULE PO SCH (09:21)
[2020-03-05] MEDS: FUROSEMIDE 40 MG TABLET PO SCH (09:22)
[2020-03-05] MEDS: POTASSIUM CHLORIDE 10 MEQ TABLET.SA PO SCH (09:22)
[2020-03-05] MEDS: PARoxetine HCL 10 MG TABLET PO SCH (09:23)
[2020-03-05] MEDS: PANTOPRAZOLE SODIUM 40 MG TABLET.EC PO SCH ×2 (09:24→20:10)
[2020-03-05] MEDS: METHYLPREDNISOLONE SOD SUCC/PF 40 MG/ML VIAL IV SCH ×2 (09:24→20:10)
[2020-03-05] MEDS: AZITHROMYCIN 250 MG TABLET PO SCH (09:24)
[2020-03-05] MEDS ORDERED: POLYVINYL ALCOHOL 150 DROP BTL OP PRN (11:13)
--- NOTE | 2020-03-05 11:22 | PN ---
Subjective - Date and Time Seen Date: 03/05/20 Time: 08:00 Subjective Narrative: Arcelia is about the same as yesterday today. He is semi-recumbent in his bed and in no distress. He has no complaints or requests. I decreased his methylprednisolone yesterday from 80 mg to 40 mg but his blood sugars are still elevated and blood pressure is still elevated as well. I will decrease it again today to 20 mg. Vital signs: Temperature 37.3, pulse 79, BP 177/83, O2 sats 94% on room air. Lab: Glucose is 165 which is about what it was yesterday. The albumin has dropped to 2.6 and is down from 3.2. The white count is 10,100 and is down from 16,500 yesterday. Hemoglobin is 11.5 g and hematocrit is 35.7%. There are 82% neutrophils and that is down from 91.8% yesterday. Electrolytes are all normal. BUN is 21 creatinine is 1.2 and EGFR is 55 which is up from yesterday. It appears the leukocytosis has improved with reduction methylprednisolone with a blood sugar and blood pressure have not. He has been getting normal saline at 100 cc/h. I will discontinue that and some saline lock the IV. Objective - Review of Systems Generalized/Overall Review: Reports: No Symptoms Reported EENTM: Reports: No Symptoms Reported Respiratory: Reports: No Symptoms Reported Cardiac: Reports: No Symptoms Reported Abdominal: Reports: No Symptoms Reported Genitourinary Symptoms: Reports: No Symptoms Reported Musculoskeletal Complaints: Reports: No Symptoms Reported Neurological: Reports: No Symptoms Reported Skin: Reports: No Symptoms Reported Endocrine: Reports: No Symptoms Reported - Vitals Vitals: Last Vital Signs Temp 37.3 C 03/05/20 10:00 Pulse 86 03/05/20 10:00 Resp 20 03/05/20 10:00 BP 149/61 03/05/20 10:00 Pulse Ox 94 03/05/20 10:00 - Abnormal Lab Findings Abnormal Lab Findings: Abnormal Lab Results 03/05/20 03/05/20 Range/Units 06:05 06:05 RBC 3.99 L (4.7-6.0) M/mm3 Hgb 11.5 L (13.5-18.0) gm/dL Hct 35.7 L (42.0-52.0) % RDW 14.6 H (11.5-14.0) % Immature Gran % (Auto) 0.50 H (0.001-0.429) % Immature Gran # (Auto) 0.05 H (0.000-0.0310) K/mm3 Neutrophils % 82.4 H (42-75.0) % Lymphocytes % 10.6 L (20-51) % Neutrophils # 8.3 H (1.3-6.0) K/mm3 Lymphocytes # 1.07 L (1.5-3.5) k/mm3 Est GFR (Non-Af Amer) 55 L D (60-130) mL/min Random Glucose 165 H (70-110) mg/dL Albumin 2.6 L (3.4-5.0) gm/dl - Exam Constitutional: Present: Alert, Oriented x3, Cooperative, Well developed, Well nourished, No distress ENT Exam: Present: normal ENT inspection, hearing grossly normal, pharynx normal, TMs normal Neck: Present: non-tender, full range of motion, supple, normal inspection Breasts: Present: Exam deferred, Nontender Respiratory: Present: chest non-tender, lungs clear, normal breath sounds, no respiratory distress, no accessory muscle use Cardiovascular/Chest: Present: normal peripheral pulses, regular rate, rhythm, no chest tenderness, no edema, no gallop, no JVD, no murmur, no rub Abdomen: Present: Normal bowel sounds, soft, nontender, nondistended, no rebound tenderness, no hepatospenomegaly, no masses /Rectal: Present: Exam deferred Extremity: Present: normal range of motion, non-tender, normal inspection, no pedal edema, no calf tenderness, normal capillary refill Skin Exam: Present: normal color, warm/dry, no cyanosis Lymphatic: Present: no adenopathy Neurologic: Present: manager dairy II-XII nml as tested, normal cerebellar test Appearance: Present: appropriate appearance, appropriate insight, neat, no memory impairment Eye contact: Present: cooperative, good eye contact, normal speech Thoughts: Present: normal thought pattern, no apparent hallucination Assessment/Plan Plan Narrative: 1. Add amlodipine 5 mg 1 p.o. daily starting now. 2. Saline lock IV and discontinue IV fluids 3. Decrease dexamethasone to 20 mg IV twice daily 4. Recheck morning lab with CBC and CMP 5. Dr. Campos to assume management tomorrow morning - Problems/Diagnosis (1) Pneumonia Problem: Acute Qualifiers: Pneumonia type: due to unspecified organism Laterality: right Lung location: lower lobe of lung Qualified Code(s): J18.9 - Pneumonia, unspecified organism (2) Hyperglycemia, drug-induced Problem: Acute (3) COPD with exacerbation Problem: Acute (4) Acute respiratory failure with hypoxia Problem: Acute (5) Hypertension Problem: Acute Qualifiers: Hypertension type: essential hypertension Qualified Code(s): I10 - Essential (primary) hypertension (6) Major depressive disorder Problem: Acute Qualifiers: Major depression recurrence: recurrent Active/Remission status: currently active Major depression episode severity: mild Qualified Code(s): 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
[2020-03-05] MEDS: amLODIPine BESYLATE 5 MG TABLET PO SCH (12:04)
[2020-03-05] MEDS: PHENYTOIN SODIUM 30 MG PO SCH (17:01)
[2020-03-05] MEDS: PHENYTOIN 50 MG TAB.CHEW PO SCH (17:02)
[2020-03-05] MEDS: MIRTAZAPINE 15 MG TABLET PO SCH (17:03)
[2020-03-05] MEDS: ALPRAZolam 0.5 MG TABLET PO SCH (17:03)
[2020-03-05] MEDS: ROSUVASTATIN CALCIUM 20 MG TABLET PO SCH (20:10)
[2020-03-06] MEDS: ALBUTEROL SULFATE/IPRATROPIUM 3 ML NEBU IH SCH ×2 (02:16→06:13)
[2020-03-06] MEDS: HEPARIN SODIUM,PORCINE 5,000 UNITS/ML VIAL SC SCH (04:36)
[2020-03-06 06:33] LABS: Hematocrit 36.7 % (42.0-52.0); Hemoglobin 11.9 gm/dL (13.5-18.0); Mean Cell Volume 89.1 fl (78-100); Mean Corpuscular Hemoglobin 28.9 pg (27-31); Mean Corpuscular Hgb Conc 32.4 g/dl (32-36); Neutrophil # 5.4 K/mm3 (1.3-6.0); Neutrophil % 71.3 % (42-75.0); Platelet Count 284 K/mm3 (150-450); Red Blood Count 4.12 M/mm3 (4.7-6.0); Red Cell Distribution Width 14.6 % (11.5-14.0); White Blood Count 7.6 K/mm3 (4.0-10.5)
[2020-03-06 06:53] LABS: Albumin * 2.7 gm/dl (3.4-5.0); Anion Gap 9.5 mmol/L (6.8-13.8); BUN/Creatinine Ratio 13.9 (9.0-21.6); Bilirubin, Total 0.2 mg/dL (0.0-1.1); Ca. Corrected For Albumin 10.1 mg/dL (8.4-10.2); Calcium * 9.4 mg/dL (7.9-10.9); Carbon Dioxide 28.4 mmol/L (24-32.6); Potassium 3.9 mmol/L (3.4-4.6); Total Protein 7.1 gm/dL (6.2-8.2)
--- NOTE | 2020-03-06 08:27 | DS ---
(1) Pneumonia Problem: Acute Qualifiers: Pneumonia type: due to unspecified organism Laterality: right Lung location: lower lobe of lung Qualified Code(s): J18.9 - Pneumonia, unspecified organism (2) Acute respiratory failure with hypoxia Problem: Resolved (3) Lactic acidosis Problem: Resolved (4) COPD with exacerbation Problem: Resolved (5) Hypertension Problem: Chronic Qualifiers: Hypertension type: essential hypertension Qualified Code(s): I10 - Essential (primary) hypertension (6) Hyperlipidemia Problem: Chronic Date of Discharge:: 03/06/20 Hospital Course: Matthias Hall is an 89-year-old white male patient of Dr. Rice with past medical history of COPD, hypertension, seizure disorder, hyperlipidemia, history of angina, who was admitted on 03/03/2024 because of shortness of breath associated with nausea. The patient says that when he woke-up this morning he was starting to have some shortness of breath associated with wheezing. He used his inhalers and nebulizers 3 times with no success and so he went to the emergency room. He denied any chest pain, fever or chills, coughing with productive phlegm but admits to orthopnea. He does not wear oxygen at home. When he got to the emergency room he was saturating around 86% on room air and tachypneic with respiratory rate in the 40s. His EKG showed normal sinus rhythm with nonspecific ST-T wave changes. His white blood cell count was elevated and his chest x-ray showed right middle and lower lobe consolidation. His ABG showed 7.38/38.2/48.1/22/83.4 %. He was then admitted for pneumonia with acute COPD exacerbation leading to acute hypoxemic respiratory failure. His oxygen saturation improved to the upper 90s with 2 L of nasal cannula.He was started on IV antibiotics, IV solumedrol, and breathing tretaments. His WBC normalized and kidney function improved. His CXR showed interval resolution of infiltrates. He is stable to be discharged today on PO levaquin. Procedures Performed: none Results and Findings: Pending Mircobiology Results 03/03/20 03:45 Blood Blood Culture - Preliminary NO GROWTH AFTER 48 HOURS 03/03/20 03:20 Blood Blood Culture - Preliminary NO GROWTH AFTER 48 HOURS Lab Pending Results 03/03/20 03:20: WBC 12.2 H, RBC 5.01, Hgb 14.4, Hct 44.8, MCV 89.4, MCH 28.7, MCHC 32.1, RDW 14.0, Plt Count 317, MPV 9.4, Immature Gran % (Auto) 0.30, Immature Gran # (Auto) 0.04 H, Neutrophils % 90.3 H, Lymphocytes % 6.9 L, Monocytes % 1.3, Eosinophils % 0.9, Basophils % 0.3, Nucleated RBC % 0.0, Neutrophils # 11.0 H, Lymphocytes # 0.84 L, Monocytes # 0.2, Eosinophils # 0.1, Absolute Basophils 0.0 03/03/20 03:20: Sodium 138, Plasma Sodium 139, Potassium 4.2, Chloride 104, Carbon Dioxide 31.0, Anion Gap 7.2, BUN 14, Creatinine 1.09, Est GFR (Non-Af Amer) 68, BUN/Creatinine Ratio 12.8, Random Glucose 160 H, Calcium 9.3, Calcium Adj for Albumin 9.6, Total Bilirubin 0.3, AST 41, ALT 35, Alkaline Phosphatase 148, Troponin I Less than 0.017, Total Protein 7.8, Albumin 3.2 L 03/03/20 03:20: Lactic Acid, Venous 2.9 H* 03/03/20 03:25: B-Natriuretic Peptide 370 03/03/20 03:26: pCO2 38.2, pO2 48.1 L, HCO3 22.1, Total CO2 23.3, Base Excess - 2.5 L, ABG pH 7.38, ABG O2 Sat (Measured) 83.4 L 03/03/20 03:30: SARS-CoV-2 (PCR) Not detected 03/03/20 04:22: Urine Color Yellow, Urine Appearance Clear, Urine pH 7.0, Ur Specific [place] 1.015, Urine Protein Negative, Urine Glucose (UA) Negative, Uri ne Ketones Negative, Urine Blood Negative, Urine Nitrate Negative, Urine Bilirubin Negative, Urine Urobilinogen Normal, Ur Leukocyte Esterase Negative, Urine RBC None seen, Urine WBC None seen, Ur Epithelial Cells None seen, Urine Bacteria None seen, Urine Culture Comments No culture indicated 03/03/20 04:25: Urine Legionella Ag Not detected 03/03/20 06:27: Lactic Acid, Venous 1.5 03/04/20 06:30: WBC 16.5 H D, RBC 3.90 L, Hgb 11.3 L, Hct 34.7 L, MCV 89.0, MCH 29.0, MCHC 32.6, RDW 14.5 H, Plt Count 230, MPV 9.5, Immature Gran % (Auto) 0.90 H, Immature Gran # (Auto) 0.15 H, Neutrophils % 91.8 H, Lymphocytes % 4.6 L, Monocytes % 2.6, Eosinophils % 0.0, Basophils % 0.1, Nucleated RBC % 0.0, Neutrophils # 15.1 H, Lymphocytes # 0.75 L, Monocytes # 0.4, Eosinophils # 0.0, Absolute Basophils 0.0 03/04/20 06:30: Sodium 134, Plasma Sodium 135, Potassium 4.4, Chloride 100, Carbon Dioxide 26.8, Anion Gap 11.6, BUN 25 H D, Creatinine 1.59 H D, Est GFR (Non-Af Amer) 44 L D, BUN/Creatinine Ratio 15.7, Random Glucose 169 H, Calcium 9.2 03/05/20 06:05: WBC 10.1 D, RBC 3.99 L, Hgb 11.5 L, Hct 35.7 L, MCV 89.5, MCH 28.8, MCHC 32.2, RDW 14.6 H, Plt Count 253, MPV 10.3, Immature Gran % (Auto) 0.50 H, Immature Gran # (Auto) 0.05 H, Neutrophils % 82.4 H, Lymphocytes % 10.6 L, Monocytes % 5.5, Eosinophils % 0.7, Basophils % 0.3, Nucleated RBC % 0.0, Neutrophils # 8.3 H, Lymphocytes # 1.07 L, Monocytes # 0.6, Eosinophils # 0.1, Absolute Basophils 0.0 03/05/20 06:05: Sodium 138, Plasma Sodium 139, Potassium 4.1, Chloride 103, Carbon Dioxide 28.8, Anion Gap 10.3, BUN 21, Creatinine 1.31, Est GFR (Non-Af Amer) 55 L D, BUN/Creatinine Ratio 16.0, Random Glucose 165 H, Calcium 9.3, Calcium Adj for Albumin 10.1, Total Bilirubin 0.2, AST 33, ALT 33, Alkaline Phosphatase 99, Total Protein 7.0, Albumin 2.6 L 03/06/20 06:08: WBC 7.6 D, RBC 4.12 L, Hgb 11.9 L, Hct 36.7 L, MCV 89.1, MCH 28.9, MCHC 32.4, RDW 14.6 H, Plt Count 284, MPV 10.0, Immature Gran % (Auto) 0.50 H, Immature Gran # (Auto) 0.04 H, Neutrophils % 71.3, Lymphocytes % 19.4 L, Monocytes % 6.3, Eosinophils % 2.0, Basophils % 0.5, Nucleated RBC % 0.0, Neutrophils # 5.4, Lymphocytes # 1.48 L, Monocytes # 0.5, Eosinophils # 0.2, Absolute Basophils 0.0 03/06/20 06:08: Sodium 137, Plasma Sodium 137, Potassium 3.9, Chloride 103, Carbon Dioxide 28.4, Anion Gap 9.5, BUN 16, Creatinine 1.15, Est GFR (Non-Af Amer) 64, BUN/Creatinine Ratio 13.9, Random Glucose 114 H D, Calcium 9.4, Calcium Adj for Albumin 10.1, Total Bilirubin 0.2, AST 31, ALT 37, Alkaline Phosphatase 101, Total Protein 7.1, Albumin 2.7 L Discharge Location: Home Disposition: Home self-care Condition: Stable Discharge Activity: Activity as tolerated Discharge Diet: Low salt Referrals: Shalom Rice MD [Primary Care Provider] - Additional Patient Instructions (free text): Follow up with his PCP in 1 week. Prescriptions (Any new or edited meds): Levofloxacin [Levaquin] 500 mg PO DAILY 7 Days #7 tab Transmission Status: Pending to [facility] predniSONE [Prednisone] 30 mg PO DAILY 5 Days #12 tab Transmission Status: Pending to [facility] Complete Home Medications List: Complete Home Medication List: Atorvastatin Calcium [Lipitor] 80 mg PO HS 11/19/12 Isosorbide Mononitrate [Imdur] 90 mg PO DAILY 11/19/12 Metoprolol Tartrate [Lopressor] 50 mg PO BID 11/19/12 Paroxetine HCl [Paxil] 30 mg PO DAILY 11/19/12 Doxazosin Mesylate [Cardura] 1 mg PO DAILY 01/25/14 Furosemide [Lasix] 40 mg PO QAM 01/25/14 Omeprazole [Prilosec] 40 mg PO BID 01/25/14 ALPRAZolam [Xanax] 0.5 mg PO PRN 03/03/20 ALPRAZolam [Xanax] 0.5 mg PO QPM 03/03/20 Albuterol Sulfate [Ventolin HFA] 1 puff INHALATION PRN 03/03/20 Aspirin [Aspirin Chewable] 81 mg PO DAILY 03/03/20 Fluticasone Propion/Salmeterol [Fluticasone-Salmeterol 500-50] 1 puff INH BID 03/03/20 Mirtazapine 15 mg PO QPM 03/03/20 Nitroglycerin [Nitrostat] 0.4 mg SUBLINGUAL Q5MIN PRN 03/03/20 Phenytoin Sodium Extended [Dilantin] 30 mg PO QPM 03/03/20 Phenytoin [Dilantin Chewable Tablet] 100 mg PO QPM 03/03/20 Potassium Chloride 10 meq PO DAILY 03/03/20 Propylene Glycol/Peg 400 [Systane 0.3-0.4% Eye Drops] 1 drp OPHTHALMIC (EYE) PRN PRN 03/04/20 Isosorbide Mononitrate [Imdur] 90 mg PO DAILY tab.sr.24h 03/06/20 Levofloxacin [Levaquin] 500 mg PO DAILY 7 Days #7 tab 03/06/20 predniSONE [Prednisone] 30 mg PO DAILY 5 Days #12 tab 03/06/20 Forms: Patient Portal Registration
[2020-03-06] MEDS: ISOSORBIDE MONONITRATE 30 MG TAB.SR.24H PO SCH (09:08)
[2020-03-06] MEDS: PANTOPRAZOLE SODIUM 40 MG TABLET.EC PO SCH (09:08)
[2020-03-06] MEDS: DOXAZOSIN MESYLATE 2 MG TABLET PO SCH (09:08)
[2020-03-06] MEDS: amLODIPine BESYLATE 5 MG TABLET PO SCH (09:08)
[2020-03-06] MEDS: PARoxetine HCL 10 MG TABLET PO SCH (09:08)
[2020-03-06] MEDS: POTASSIUM CHLORIDE 10 MEQ TABLET.SA PO SCH (09:08)
[2020-03-06] MEDS: ASPIRIN 81 MG TAB.CHEW PO SCH (09:08)
[2020-03-06] MEDS: METOPROLOL TARTRATE 50 MG TABLET PO SCH (09:09)
[2020-03-06] MEDS: FUROSEMIDE 40 MG TABLET PO SCH (09:09)
[2020-03-06] MEDS: AZITHROMYCIN 250 MG TABLET PO SCH (09:09)
[2020-03-06] MEDS: METHYLPREDNISOLONE SOD SUCC/PF 40 MG/ML VIAL IV SCH (09:09)
[2020-03-06] MEDS: FLUoxetine HCL 20 MG CAPSULE PO SCH (09:09)
[2020-03-06 11:33] VITALS: BP 108/55
== END 2020-03-06 12:00 | disposition home or self-care (01) | DRG 193 ==
LOC: ER 03:02 → MS 05:23
PROVIDERS: ADMIT Internal Medicine; ATTEND Internal Medicine
DX: J44.1 Chronic obstructive pulmonary disease with (acute) exacerbation; R73.9 Hyperglycemia, unspecified; T38.0X5A Adverse effect of glucocorticoids and synthetic analogues, initial encounter; F33.0 Major depressive disorder, recurrent, mild; I10 Essential (primary) hypertension; E87.2 Acidosis; E78.5 Hyperlipidemia, unspecified; J18.9 Pneumonia, unspecified organism; J96.01 Acute respiratory failure with hypoxia; F51.01 Primary insomnia; Z11.59 Encounter for screening for other viral diseases; Z87.891 Personal history of nicotine dependence; N28.9 Disorder of kidney and ureter, unspecified
CPT/HCPCS: 36415; 36600; 71010; 71020; 71045; 71046; 80048; 80053; 81001; 82803; 83519; 83605; 83880; 84484; 85025; 87040; 87449; 93005; 94640; 94664; 96365; 96375; 99284; 99285; C9803; J2405